=== PATIENT | female | born 1950 | race Hispanic/Latino ===

== ENCOUNTER 2022-03-06 06:06 | Inpatient (IN) | payer SELFPAY ==
[~2022-03-06] VITALS: Ht 157.5 cm; Wt 81.2 kg
[2022-03-06] MEDS ORDERED: Morphine 4mg INJECTION 4 MG/ML INJ IV STA (06:35)
[2022-03-06] MEDS ORDERED: ONDANSETRON HCL INJ 2MG/ML 2ML 2 MG/ML VIAL IV STA (06:35)
[2022-03-06 06:47] LABS: BASOPHILS # (AUTO) 0.1 (0.0-0.1); BASOPHILS % 1.6 % (0.0-1.0); EOSINOPHILS # (AUTO) 0.3 (0.0-0.4); EOSINOPHILS % 6.2 % (0.0-6.0); HEMATOCRIT 45.8 % (34.2-44.1); HEMOGLOBIN 14.8 g/dL (12.0-16.0); LYMPHOCYTES # (AUTO) 1.4 (1.0-3.2); LYMPHOCYTES % 26.3 % (18.0-39.1); MEAN CORPUSCULAR HEMOGLOBIN 31.7 pg (28-32); MEAN CORPUSCULAR HGB CONC 32.3 g/dL (31-35); MEAN CORPUSCULAR VOLUME 98.1 fL (81-99); MONOCYTES # (AUTO) 0.5 (0.2-0.8); MONOCYTES % 8.2 % (4.4-11.3); NEUTROPHILS # (AUTO) 3.1 (2.1-6.9); NEUTROPHILS % 57.5 % (38.7-80.0); PLATELET COUNT 226 x10e3/uL (140-360); RED BLOOD COUNT 4.67 x10e6/uL (3.6-5.1); RED CELL DISTRIBUTION WIDTH 12.6 % (11.7-14.4)
[2022-03-06] MEDS ORDERED: Morphine 4mg INJECTION 4 MG/ML INJ ONE (06:50)
[2022-03-06] MEDS ORDERED: ONDANSETRON HCL INJ 2MG/ML 2ML 2 MG/ML VIAL ONE (06:50)
[2022-03-06 07:02] LABS: INR 0.9
[2022-03-06 07:03] LABS: PARTIAL THROMBOPLASTIN TIME 30.5 seconds (23.8-35.5)
[2022-03-06 07:11] LABS: ALANINE AMINOTRANSFERASE 17 IU/L (0-55); ALBUMIN 3.7 g/dL (3.5-5.0); ALBUMIN/GLOBULIN RATIO 1.2 (0.8-2.0); ALKALINE PHOSPHATASE 75 IU/L (40-150); ANION GAP 12.1 mmol/L (8-16); BLOOD UREA NITROGEN 16 mg/dL (7-26); BUN/CREATININE RATIO 19 (6-25); CALCIUM 9.4 mg/dL (8.4-10.2); CARBON DIOXIDE 30 mmol/L (22-29); CHLORIDE 104 mmol/L (98-107); CREATINE KINASE 48 IU/L (29-168); CREATININE, SERUM 0.84 mg/dL (0.57-1.11); GLUCOSE 110 mg/dL (74-118); LIPASE 20 U/L (8-78); POTASSIUM 4.1 mmol/L (3.5-5.1); SODIUM 142 mmol/L (136-145)
[2022-03-06] MEDS ORDERED: ASPIRIN 81 MG CHEW TAB PO STA (08:49)
[2022-03-06] MEDS ORDERED: ENOXAPARIN INJ 80 MG/0.8 ML SYR SC ONE (09:00)
[2022-03-06] MEDS ORDERED: NITROGLYCERIN 2% OINT 1 GM PKT TOP ONE (09:00)
[2022-03-06] MEDS ORDERED: ONDANSETRON HCL INJ 2MG/ML 2ML 2 MG/ML VIAL IV PRN (09:30)
[2022-03-06] MEDS ORDERED: NITROGLYCERIN 0.4 MG SUBL SL PRN (09:30)
[2022-03-06] MEDS ORDERED: Morphine 2mg Syringe 2 MG/ML SYR IV PRN (09:30)
[2022-03-06] MEDS ORDERED: DIOVAN160 MG PO (09:57)
[2022-03-06] MEDS ORDERED: OMEPRAZOLE40 MG PO (09:57)
[2022-03-06] MEDS ORDERED: NITROSTAT0.4 MG SL (09:57)
[2022-03-06] MEDS ORDERED: HYDROCHLOROTHIA25 MG PO (09:57)
[2022-03-06] MEDS ORDERED: BENZONATATE100 MG PO (09:57)
[2022-03-06] MEDS ORDERED: HYDRALAZINE HCL10 MG PO (09:57)
[2022-03-06] MEDS: METOPROLOL TARTRATE 25 MG TAB PO SCH ×2 (10:12→21:33)
[2022-03-06 12:20] LABS: CREATINE KINASE MB 0.5 ng/mL (0-5.0)
[2022-03-06 13:15] VITALS: BP 121/86
[2022-03-06 13:18] VITALS: BP 121/86
[2022-03-06 16:16] VITALS: BP 121/75
[2022-03-06 16:37] VITALS: BP 121/75
[2022-03-06 20:00] VITALS: BP 132/82
[2022-03-06 20:01] LABS: CREATINE KINASE MB 0.4 ng/mL (0-5.0)
[2022-03-07] VITALS: BP 129/72
[2022-03-07 01:38] LABS: CREATINE KINASE 23 IU/L (29-168)
[2022-03-07 04:00] VITALS: BP 121/77
[2022-03-07 05:50] LABS: BASOPHILS # (AUTO) 0.1 (0.0-0.1); BASOPHILS % 2.1 % (0.0-1.0); EOSINOPHILS # (AUTO) 0.4 (0.0-0.4); EOSINOPHILS % 8.7 % (0.0-6.0); HEMATOCRIT 43.9 % (34.2-44.1); HEMOGLOBIN 14.2 g/dL (12.0-16.0); LYMPHOCYTES # (AUTO) 1.6 (1.0-3.2); LYMPHOCYTES % 33.6 % (18.0-39.1); MEAN CORPUSCULAR HEMOGLOBIN 31.4 pg (28-32); MEAN CORPUSCULAR HGB CONC 32.3 g/dL (31-35); MEAN CORPUSCULAR VOLUME 97.1 fL (81-99); MONOCYTES # (AUTO) 0.5 (0.2-0.8); MONOCYTES % 9.3 % (4.4-11.3); NEUTROPHILS # (AUTO) 2.2 (2.1-6.9); NEUTROPHILS % 46.1 % (38.7-80.0); PLATELET COUNT 209 x10e3/uL (140-360); RED BLOOD COUNT 4.52 x10e6/uL (3.6-5.1); RED CELL DISTRIBUTION WIDTH 12.3 % (11.7-14.4)
[2022-03-07 06:16] LABS: ALBUMIN 3.1 g/dL (3.5-5.0); CALCIUM 8.8 mg/dL (8.4-10.2); CREATININE, SERUM 0.77 mg/dL (0.57-1.11)
[2022-03-07 08:17] VITALS: BP 128/79
[2022-03-07 08:54] VITALS: BP 128/79
[2022-03-07 08:57] VITALS: BP 128/79
[2022-03-07] MEDS: METOPROLOL TARTRATE 25 MG TAB PO SCH (08:59)
[2022-03-07] MEDS ORDERED: ASPIRIN 81 MG ENTERIC COATED PO SCH (09:00)
[2022-03-07 11:18] VITALS: BP 113/68
== END 2022-03-07 13:54 | disposition home or self-care (01) | DRG 313 ==
LOC: ER 06:12 → ERHOLD 09:31 → MED/SURG2 11:58
PROVIDERS: ADMIT Family Medicine; ATTEND Family Medicine
DX: R07.2 Precordial pain (principal); R51.9 Headache, unspecified; I10 Essential (primary) hypertension; Z85.3 Personal history of malignant neoplasm of breast; R94.31 Abnormal electrocardiogram [ECG] [EKG]; E66.09 Other obesity due to excess calories; Z68.32 Body mass index [BMI] 32.0-32.9, adult; E78.5 Hyperlipidemia, unspecified; Z20.822 Contact with and (suspected) exposure to COVID-19
CPT/HCPCS: 0223U; 36415; 70450; 71045; 80053; 80061; 82550; 82553; 83690; 83735; 83880; 84484; 85025; 85610; 85730; 93005; 93306; 94799; 99284; J1650; J2270; J2405

== ENCOUNTER 2022-03-13 07:03 | Emergency (ER) | payer SELFPAY ==
[~2022-03-13] VITALS: Ht 157.5 cm; Wt 81.2 kg
[~2022-03-13 07:03] MED LIST: BENZONATATE100 MG PO; DIOVAN160 MG PO; HYDRALAZINE HCL10 MG PO; HYDROCHLOROTHIA25 MG PO; NITROSTAT0.4 MG SL; OMEPRAZOLE40 MG PO
[2022-03-13 07:37] LABS: BASOPHILS # (AUTO) 0.1 (0.0-0.1); BASOPHILS % 1.6 % (0.0-1.0); EOSINOPHILS # (AUTO) 0.2 (0.0-0.4); EOSINOPHILS % 4.9 % (0.0-6.0); HEMATOCRIT 45.4 % (34.2-44.1); HEMOGLOBIN 14.4 g/dL (12.0-16.0); LYMPHOCYTES # (AUTO) 1.2 (1.0-3.2); LYMPHOCYTES % 23.7 % (18.0-39.1); MEAN CORPUSCULAR HGB CONC 31.7 g/dL (31-35); MEAN CORPUSCULAR VOLUME 97.8 fL (81-99); MONOCYTES # (AUTO) 0.4 (0.2-0.8); MONOCYTES % 8.3 % (4.4-11.3); NEUTROPHILS % 61.1 % (38.7-80.0); PLATELET COUNT 221 x10e3/uL (140-360); RED BLOOD COUNT 4.64 x10e6/uL (3.6-5.1); RED CELL DISTRIBUTION WIDTH 12.7 % (11.7-14.4)
[2022-03-13] MEDS ORDERED: KETOROLAC TROMETHAMINE 30 MG/ML VIAL IV STA (07:40)
[2022-03-13] MEDS ORDERED: ONDANSETRON HCL INJ 2MG/ML 2ML 2 MG/ML VIAL IV STA (07:40)
[2022-03-13] MEDS ORDERED: Morphine 2mg Syringe 2 MG/ML SYR IV STA (07:40)
[2022-03-13] MEDS ORDERED: LORAZEPAM INJ 2 MG/ML VIAL IV ONE (07:45)
[2022-03-13 07:50] LABS: INR 0.91; PROTHROMBIN TIME 13.1 seconds (11.9-14.5)
[2022-03-13 07:51] LABS: PARTIAL THROMBOPLASTIN TIME 31.4 seconds (23.8-35.5)
[2022-03-13 07:59] LABS: ALANINE AMINOTRANSFERASE 17 IU/L (0-55); ALBUMIN 3.5 g/dL (3.5-5.0); ALKALINE PHOSPHATASE 72 IU/L (40-150); BLOOD UREA NITROGEN 13 mg/dL (7-26); BUN/CREATININE RATIO 15 (6-25); CALCIUM 8.4 mg/dL (8.4-10.2); CARBON DIOXIDE 26 mmol/L (22-29); CHLORIDE 105 mmol/L (98-107); CREATINE KINASE 41 IU/L (29-168); CREATININE, SERUM 0.84 mg/dL (0.57-1.11); GLUCOSE 100 mg/dL (74-118); SODIUM 142 mmol/L (136-145)
[2022-03-13 13:10] VITALS: BP 134/96
== END 2022-03-13 13:29 | disposition home or self-care (01) ==
LOC: ER 07:05
DX: R07.9 Chest pain, unspecified (principal); I10 Essential (primary) hypertension; E78.5 Hyperlipidemia, unspecified; Z20.822 Contact with and (suspected) exposure to COVID-19; R94.31 Abnormal electrocardiogram [ECG] [EKG]; Z85.3 Personal history of malignant neoplasm of breast
CPT/HCPCS: 0223U; 36415; 71045; 80053; 82550; 82553; 83880; 84484; 85025; 85610; 85730; 93005; 99284; J1885; J2060; J2270; J2405